=== PATIENT | female | born 1990 | race Caucasian/White ===

== ENCOUNTER 2025-04-30 23:25 | Emergency (ER) | payer MEDICAID ==
[~2025-04-30] VITALS: Ht 162.6 cm; Wt 63.1 kg
[2025-05-01 00:06] VITALS: TEMP 97.9
[2025-05-01 00:21] LABS: PLATELET COUNT (AUTO) 237 K/uL (150-450); RED BLOOD CELL COUNT(AUTO) 4.59 MIL/uL (4.00-5.20); RED CELL DISTRIBUTION WIDTH 17.5 % (11.5-14.5); WHITE BLOOD COUNT (AUTO) 6.7 K/uL (4.5-11.0)
[2025-05-01 00:32] LABS: CALCIUM, TOTAL 8.6 mg/dL (8.8-10.5); CREATININE 0.70 mg/dL (0.60-1.30); GLOMERULAR FILTR. RATE CALC > 60 mL/min (>60); GLUCOSE,RANDOM 83 mg/dL (70-110); SODIUM SERUM 144 mmol/L (136-145); UREA NITROGEN, BLOOD 14 mg/dL (7-18)
[2025-05-01 00:36] LABS: ASPARTATE AMINOTRANSFERASE 18.0 U/L (15-37); TOTAL PROTEIN, SERUM 7.6 g/dL (6.4-8.2)
[2025-05-01 00:38] LABS: ALCOHOL, BLOOD (SERUM) 205.0 mg/dL (0-10)
[2025-05-01 00:48] LABS: APPEARANCE,URINE CLEAR (CLEAR); GLUCOSE, URINE (UA) NEGATIVE (NEGATIVE); LEUKOCYTE ESTERASE ,URINE NEGATIVE (NEGATIVE); NITRATE,URINE NEGATIVE (NEGATIVE); OCCULT BLOOD,URINE NEGATIVE (NEGATIVE); PH,URINE DRUG SCREEN 5.0 (5.0-8.0); SPECIFIC GRAVITIY, URINE 1.007 (1.003-1.030)
[2025-05-01 00:53] LABS: ALCOHOL, URINE DRUG SCREEN POSITIVE (NEGATIVE); AMPHET/METH SCREEN,URINE NEGATIVE (NEGATIVE); BARBITURATE SCREEN, URINE NEGATIVE (NEGATIVE); CANNABINOID SCREEN,URINE NEGATIVE (NEGATIVE); COCAINE SCREEN,URINE NEGATIVE (NEGATIVE); METHADONE SCREEN, URINE NEGATIVE (NEGATIVE)
[2025-05-01 01:07] VITALS: BP 100/68; PULSE 88; RESP 18; O2SAT 98
== END 2025-05-01 03:31 ==
LOC: EMS 23:27
DX: F10.129 Alcohol abuse with intoxication, unspecified (principal); Y90.8 Blood alcohol level of 240 mg/100 ml or more
CPT/HCPCS: 99284; 80048; 80076; 81003; 84703; 85025; 36415; 80307; 70450; G0480